=== PATIENT | female | born 1950 | race Caucasian/White ===

== ENCOUNTER 2016-10-31 13:00 | Inpatient (IN) | payer OTHER ==
[~2016-10-31] VITALS: Ht 170.2 cm; Wt 88.4 kg
--- NOTE | ~2016-10-31 | CON ---
PATIENT'S NAME: LILI IVEY [facility] AGE: 66 Y [address] ROOM: [id number] [place], [place] [address] LOCATION: G3N ADMIT DATE: 11/13/2016 Consultation DISCHARGE DATE: 11/16/2016 FAMILY PHYSICIAN: Jerod Phipps MD ATTENDING PHYSICIAN: Kalin Parada DATE OF CONSULTATION: 11/15/2016 TIME: 1:45 p.m. CHIEF COMPLAINT: Tremulousness. PRIOR MEDICAL HISTORY: This is a 66-year-old female who presented two days ago to have a right total knee surgery per Dr. Parada. After the surgery, she had some tremulousness of her left lower extremity. Occasionally these episodes of tremulousness would also involve her right arm and the whole body. At no time, did she lose any consciousness. She was totally aware of the symptoms. They would last anywhere from 2 minutes to 15 minutes. They did not seem to be brought on by anything, although the patient has had some pain control issues after surgery. Her pain is been well controlled, however, they have had to adjust the medication regime. The nurse stated she had this issue with her legs shaking, but was able to walk to the bathroom with a walker and return to the chair and the legs started shaking again. Demerol 25 mg IV has been used to treat this, however, it is unsure how effective this has been. She is also receiving Valium 5 mg p.o. The patient was on tramadol previous to the hospital stay for her pain. Now, she is getting Dilaudid p.o. The tremulousness only happened one time last night, but did happen several times yesterday. At no time, did she lose strength nor have any numbness or tingling with this. She was a little dizzy last night, however, her blood pressure was in the 90s. She has been participating in her joint recovery without incident. We are consulted for evaluation of the tremulousness. ALLERGIES: CODEINE, CORTISONE, MORPHINE, AND PERCOCET TABS. SOCIAL HISTORY: She is . She has never used to alcohol and she does not smoke nor use illicit drugs. FAMILY HISTORY: Her mother had a history of a CVA, diabetes mellitus, and hypertension. Her father had a history of hypertension. She does have one sibling with history PATIENT'S NAME: LILI IVEY [facility] AGE: 66 Y [address] ROOM: [id number] [place], [place] [address] LOCATION: G3 ADMIT DATE: 11/13/2016 Consultation DISCHARGE DATE: 11/16/2016 FAMILY PHYSICIAN: Jerod Phipps MD ATTENDING PHYSICIAN: Kalin Parada of hypertension. An aunt had a history of a malignant neoplasm and an uncle had a history of malignant neoplasm. REVIEW OF SYSTEMS: All systems were reviewed and are negative except as those mentioned in the HPI. PHYSICAL EXAMINATION: VITAL SIGNS: The patient's temperature is 98.5, pulse is 65, respirations 12, and blood pressure 105/58. She is saturating 93% on room air. GENERAL: Lili is alert and oriented, she is pleasant and cooperative with the interview. She is in no distress. HEENT: Head is normocephalic and atraumatic. CARDIO: Regular rate and rhythm without murmur, rub, or gallop. PULMONARY: She is clear to auscultation bilaterally. EXTREMITIES: There is no clubbing, cyanosis, and there is slight edema to the right leg, although it is difficult to tell because it is wrapped in an Shawn wrap. NEUROLOGIC: She is alert and oriented x3. Her language is fluent. She is a good historian. Pupils are equal and reactive to light and accommodation. Cranial nerves 2 through 12 are intact. As far as motor strength, she has normal motor tone. Her strength is a 5/5 throughout uppers and lower extremities. The exception is her right knee. Limits the exam to the right leg. She was witness to walk with a walker with the right knee and she is able to propel herself well. There is no pronator drift. Her reflexes are 2+ throughout. Sensation is intact. Cerebellar function by [id number] testing was intact. Gait is per walker and is appropriate for someone who has just had a right total knee. She did have a CMS pre-surgery and there were no out of limit values with that. She also had a CBC which showed a hemoglobin of 14.3 and hematocrit of 42.5. A urinalysis was also completed prior to surgery without any findings suspicious for infection. SUMMARY: In summary, this patient has developed tremulousness of the left leg sometimes involving the upper body and arms after knee surgery. The patient states she has had this tremulousness before after a back surgery. Demerol does not seem to be exceedingly effective for this. This does not seem to happen when she is asleep as she only had that one time at night; however, she has had it many times during the day. ASSESSMENT AND PLAN: 1. Tremulousness. This certainly could be related to medications and anesthesia and the stress of having a surgery. This seems like a benign PATIENT'S NAME: LILI IVEY [facility] AGE: 66 Y [address] ROOM: [place] [address] LOCATION: [facility] ADMIT DATE: 11/13/2016 Consultation DISCHARGE DATE: 11/16/2016 FAMILY PHYSICIAN: Jerod Phipps MD ATTENDING PHYSICIAN: Kalin Parada tremulousness and I would not treat it with any further medications. This should resolve. The patient was pleased to hear that diagnosis. If you have any further questions, please let us know. Dr. Brown and I both examined the patient. We would like to thank Dr. Parada for the opportunity to participate in this patient's care. HEATHER CUEVAS APRN FOR DARLENE BROWN MD PP/romeo /[id number] d: 11/16/161609 t: 12/05/16 1629, CONSULTATION REPORT
--- NOTE | ~2016-10-31 | OR ---
PATIENT'S NAME: LONI [facility] AGE: 66 Y [address] ROOM: [place] [address] LOCATION: [facility] ADMIT DATE: 11/13/2016 OR/Procedure Report DISCHARGE DATE: FAMILY PHYSICIAN: TRICIA HINTON MD ATTENDING PHYSICIAN: SOBIA POOL SURGEON: Sobia Pool MD MANAGER CLEANING: 1. Boby Lake PA-C. 2. Thony Flroes CST/CHIEF ACCOUNTING OFFICER. DATE OF PROCEDURE: 11/13/2016 PRE-OP DIAGNOSIS: Degenerative joint disease right knee. POST-OP DIAGNOSIS: Degenerative joint disease right knee. OPERATION: Right total knee arthroplasty with computer navigation. ANESTHESIA: Spinal anesthesia plus adductor canal block plus subcutaneous and periarticular local anesthesia (ropivacaine with epinephrine and Toradol). ESTIMATED BLOOD LOSS: Less than 10 mL. DRAIN: None. SPECIMEN: None. COMPLICATIONS: None. IMPLANT SYSTEM: [employer]. 1. Size 4 right posterior stabilized femoral component. 2. Size 3 universal modular tibial baseplate. 3. 13 mm posterior stabilized size 3 X3 tibial polyethylene insert. 4. 32 mm oval X3 patella component. INDICATIONS FOR SURGERY: Lili Ivey is a 66-year-old female, who presents with advanced right knee degenerative joint disease and associated severely compromised activities of daily living. The patient has decided to proceed with knee replacement after having been thoroughly counseled regarding the associated risks, benefits, and limitations. We have specifically reviewed the risks and implications of infection, deep venous thrombosis, pulmonary embolism, mortality, neurovascular complications, blood transfusion (and associated potential for disease transmission or transfusion reaction), stiffness, instability, mechanical deterioration of the components (due to wear and or loosening), and the potential need for revision. We have also emphasized the importance of active involvement and compliance with post- operative physical therapy as a means of optimizing range of motion and PATIENT'S NAME: LONI [facility] AGE: 66 Y [address] ROOM: [place] [address] LOCATION: [facility] ADMIT DATE: 11/13/2016 OR/Procedure Report DISCHARGE DATE: FAMILY PHYSICIAN: TRICIA HINTON MD ATTENDING PHYSICIAN: SOBIA POOL functional recovery. Informed consent has been granted. DESCRIPTION OF PROCEDURE: The patient was positioned supine after administration of anesthesia and prophylactic antibiotics. A well-padded pneumatic tourniquet was placed around the right proximal thigh, and the right lower extremity was prepped and draped with vigilant sterile technique. The patient's name as well as the intended operative side and procedure were confirmed with a verbal time-out involving myself, the circulating nurse, the scrub nurse, and the anesthesiologist. Examination under anesthesia demonstrated no active skin lesions or masses. There was no erythema. There was no abnormal warmth. There was a trace effusion. There were well-healed inferomedial and inferolateral arthroscopy portal scars. Range of motion under anesthesia was from 8 degrees of hyperextension to 140 degrees of flexion. There was no ligamentous insufficiency. The right lower extremity was elevated and exsanguinated with an Esmarch wrap, and the pneumatic tourniquet was inflated to 300mmHg. The knee was approached through a longitudinal midline incision. A medial parapatellar arthrotomy was performed and the patella was everted. Examination of the joint space demonstrated a moderate amount of benign- appearing translucent synovial fluid. There was moderate fibrosis of the infrapatellar fat pad. The anterior cruciate ligament was attenuated but intact. The posterior cruciate ligament was intact. There was no synovitis. There were no loose bodies. The medial and lateral menisci were truncated. There was mild inner perimeter fraying of the remnant to the medial meniscus. There were intermixed grade 3 and grade 4 degenerative changes throughout the majority of the central and medial aspects of the patella. There was a 2 cm x 3 cm diameter region of full-thickness articular cartilage loss involving the central and medial half of the femoral trochlea. There were small osteophytes at the medial and lateral femoral condyles. There was a 1 x 3 cm area of full- thickness articular cartilage loss at the lateral half of the medial femoral condyle. There were moderate grade 3 degenerative changes involving the anterior half of the medial tibial plateau. There was a 1 cm diameter region of high-grade partial thickness articular cartilage loss at the distal aspect of the lateral femoral condyle. There were moderate grade 3 degenerative changes at the medial two-thirds of the lateral tibial plateau. Remnants of the menisci and cruciate ligaments were excised. The [employer] navigation femoral tracker was pinned in place at the distal aspect of the femoral trochlea. Absence of motion between the femur and the tracking device was confirmed manually and visually. Femoral osseous landmarks were obtained in order to calibrate the computer navigation system. Landmarks included the center of rotation of the ipsilateral hip, the center-point of the distal femur, the femoral AP axis, 57 points on the medial femoral condyle PATIENT'S NAME: LILI IVEY [facility] AGE: 66 Y [address] ROOM: [address] [address] LOCATION: [facility] ADMIT DATE: 11/13/2016 OR/Procedure Report DISCHARGE DATE: FAMILY PHYSICIAN: TRICIA HINTON MD ATTENDING PHYSICIAN: SOBIA POOL articular surface, and 57 points on the lateral femoral condyle articular surface. The [employer] computer navigation system was subsequently utilized to position the distal femoral resection block such that the distal femoral resection was performed perfectly perpendicular to the femoral mechanical axis. The distal femoral resection was performed with a [employer] oscillating saw. The [employer] computer navigation tibial tracker was pinned in place at the anterior aspect of the tibial plateau. Absence of motion between the tibia and the tracking device was confirmed manually and visually. Tibial osseous landmarks were obtained in order to calibrate the computer navigation system. Landmarks included the center-point of the tibial plateau, the AP tibial axis, 57 points on the medial tibial plateau articular surface, 57 points on the lateral tibial plateau articular surface, the medial malleolus, and the lateral malleolus. The [employer] computer navigation system was subsequently utilized to position the proximal tibial resection block such that the proximal tibial resection was performed perfectly perpendicular to the tibial mechanical axis. The proximal tibial resection was performed with a [employer] oscillating saw. Perpendicularity of the tibial resection with respect to the tibial shaft axis was reconfirmed by inserting a spacer- block attached to an extramedullary guide betina. External rotation of the anterior and posterior femoral resections was set parallel to the epicondylar axis and carefully adjusted in order to create a rectangular flexion gap. The box resection was performed with a reciprocating saw. Anterior and posterior chamfer resections were performed with the oscillating saw. Posterior condyle osteophytes were excised with an osteotome. All other osteophytes were excised with a rongeur. Resection of all remnants of the menisci was reconfirmed. Flexion and extension gaps were confirmed to be symmetric and well balanced with a spacer-block technique. The patella resection was performed with an oscillating saw such that the composite thickness of the reconstructed patella was equivalent to the thickness of the [place] patella. Patella tracking was optimal, and there was no need for a lateral retinacular release. All trial components were removed and all prepared osseous surfaces were thoroughly irrigated with pulsatile saline lavage and dried prior to cementing all three components in a single stage using [employer] Simplex cement containing pre-mixed tobramycin. All extruded excess cement was removed. The entire joint space was thoroughly inspected and thoroughly irrigated with bacteriostatic pulsatile saline lavage to assure that there was no residual debris of any sort. Final range of motion was from full extension (with no residual passive PATIENT'S NAME: LILI IVEY [facility] AGE: 66 Y [address] ROOM: [place] [address] LOCATION: [facility] ADMIT DATE: 11/13/2016 OR/Procedure Report DISCHARGE DATE: FAMILY PHYSICIAN: TRICIA HINTON MD ATTENDING PHYSICIAN: SOBIA POOL hyperextension) degrees of extension to 135 degrees of flexion. Patella tracking was reconfirmed to be optimal. There was excellent anteroposterior stability at 90 degrees of flexion. There was less than 1 mm of medial lift- off to valgus stress in full extension. There was a less than 1 mL of lateral lift-off to varus stress in full extension. The arthrotomy was closed with multiple simple and [id number] interrupted #1 Vicryl. Subcutaneous tissues were thoroughly re-irrigated with bacteriostatic pulsatile saline lavage. Subcutaneous tissues were re- approximated with simple buried interrupted #0 Vicryl sutures. The skin was closed with simple buried interrupted 2-0 Vicryl sutures followed by surgical berry. The dressing consisted of Xeroform gauze, 4x4 gauze, ABD pads and two 6-inch Shawn Wraps. There were no intra-operative complications. It should be noted that the physician's gallery assistant played an active, integral role throughout this entire operation. By providing expert retraction, they greatly facilitated and expedited safe and effective exposure of the distal femur, proximal tibia and patella for preparation and implantation of the components. They were also actively involved in the patient's positioning, prepping and draping, as well as wound closure. MD SURENDRA YATES/romeo /[id number] d: 11/13/162102 t: 11/14/16 1210, OPERATIVE SUMMARY
[2016-10-31] MEDS ORDERED: MULTI VITAMIN1 EACH PO (13:14)
[2016-10-31] MEDS ORDERED: ECOTRIN325 MG PO (13:14)
[2016-10-31] MEDS ORDERED: PROBIOTIC1 EAC1 PO (13:14)
[2016-10-31] MEDS ORDERED: LIPITOR20 MG PO (13:15)
[2016-10-31] MEDS ORDERED: HYDROCHLOROTHIA25 MG PO (13:15)
[2016-10-31] MEDS ORDERED: ZESTRIL40 MG PO (13:15)
[2016-10-31] MEDS ORDERED: COREG6.25 MG PO (13:16)
[2016-10-31] MEDS ORDERED: ULTRAM50 MG PO (13:17)
[2016-10-31] MEDS ORDERED: NORCO 7.5-3251 EACH PO (13:17)
--- NOTE | 2016-11-13 17:05 | NUR ---
Significant Event: Pt up from PACU at 1600. VSS, CSM WNL. Moderate plantar/dorsi flexion. IV intact. Nausea - Zofran given better now. Dilaudid 2 mg last at 1630. No void since OR. Ozzy hose on, foot pumps in use. Uses IS 10x/hr Follow up:
--- NOTE | 2016-11-14 05:46 | NUR ---
At 0400 went into patients room to reassess pain medication. Patient was mildly shaking. Patients pain increased from a 3 to a 7/10. Left the room and got pain medication. When returned to the room patient began to shake even more. The left leg shook and the upper body began to slightly shake. Gave Dilaudid IV, Vailum 5 mg PO and Tylenol at 0402. Patient denied being cold. Patient shook even more harder. Called charge nurse and she came in. Charge nurse stayed with patient while I called the MD. The charge nurse called warehouse checker and saw the patient. district manager primary care sales called the MD to discuss options. MD order Demerol IV and came to see the patient. Demerol was given. After a short time her shaking improved to stopping. Patient was stiff and sore from the shaking. MD was in the room and ordered Valium PO and was aware it was just given earlier. Patient is now sleeping calmly.
--- NOTE | 2016-11-14 06:10 | NUR ---
Significant Event: Dressing is clean, dry and intact. CSM WNL. 1 assist with transfers. Voids without difficulty. At 0400 patient became very shaky. Demerol was given at 0442. Valium at 0402 and 0455 extra dose given per MD order. Patient now resting. On 1 L of oxygen nasal cannula. Slight dizziness when getting up. Follow up:
--- NOTE | 2016-11-14 09:40 | NUR ---
SPOKE TO PATIENT REGARDING CM AND OUR ROLE. PATIENT LIVES IN OWN HOME WITH SPOUSE, SHE HAS ALL HER DME. SHE ANTICIPATES THAT SHE WILL DISCHARGE HOME TOMORROW WITH HELP FROM SPOUSE. PATIENT DOES NOT ANTICPATE ANY DISCHARGE NEEDS AT THIS TIME.
--- NOTE | 2016-11-14 18:37 | NUR ---
Significant Event: Ambulates with one assist, walker and gaitbelt. Increased pain after therapy class, see emar for pain medications given, ETCO2 applied. Dr Parada notified of pain control issues. Nausea, Zofran and peppermint oil given. Voids without difficulty. CSM WNL. Room air. Possible dismissal to home tomorrow afternoon. Follow up:
--- NOTE | 2016-11-15 02:43 | NUR ---
Significant Event: Dressing is clean, dry and intact. CSM WNL. Voids without difficulty. Dizzy when gets up to the bedside commode. Skelactin at 1846. Dilaudid 4 mg at 0131. Valium at 2209. Follow up:
--- NOTE | 2016-11-15 16:27 | NUR ---
Pt alert and oriented. She has had ice to knee and legs elevated. Shower this AM and compression dressing off and has mepilex to knee. Pt has been up with one asst and does well. She uses IS at 2250. She has had bilat leg tremors/shaking, uncontrollable a few times today. Was worse at 1230. Had valium 5 mg and Demerol 25 mg IV and it subsided about 7 min after demerol. None noted since. Pt ambulated to the bathroom after the tremor/shaking started and it subsided during ambulation and no problems walking. Had it of left leg this morning but not as severe. Pt had neurologist consult this afternoon. No change in medicines. She has had dilaudid 4 mg po x2, last at 1415, Demerol at 1250, valium at 1230, tylenol routine, and routine skelaxin. Was on ETCO2 earlier this morning and readings were good. Pt was dizzy when up to shower this morning. Plan to go home tomorrow.
--- NOTE | 2016-11-15 17:02 | NUR ---
Legs shakey/tremors at 1655. Demerol 25 mg IV given
--- NOTE | 2016-11-16 03:16 | NUR ---
Significant Event: A/O X 3. IV SALINE LOCK INTACT. RIGHT KNEE DRSGS MEPILEX DRY-INTACT. EZ-WRAP TO RIGHT KNEE. SAT UP IN RECLINER CHAIR EARLIER EVENING. AMBULATED TO BR VOIDS WITHOUT DIFFICULTY. HAS BILATERAL LEGS SHAKINESS. HAD DEMEROL 25MG IV FOR LEGS SHAKEY'S. HAD VALIUM 5MG PO AT 0048. HAD DILAUDID 4MG TAB 1926, 2329 FOR PAIN, RATE AT 7, LATER 5-06/09. SKELAXIN 800MG AT 2145. BP 91/ 52. UP WITH ONE ASSIST, WALKER,GAITBELT IN ROOM/BR. POSSIBLE HOME TODAY. Follow up:
[2016-11-16] MEDS ORDERED: COLACE100 MG PO (14:41)
[2016-11-16] MEDS ORDERED: PEPCID20 MG PO (14:46)
[2016-11-16] MEDS ORDERED: SKELAXIN800 MG PO (14:47)
[2016-11-16] MEDS ORDERED: MIRALAX17 GM PO (14:48)
[2016-11-16] MEDS ORDERED: LYRICA 75MG CAP75 MG PO (14:49)
[2016-11-16] MEDS ORDERED: VALIUM5 MG PO (14:51)
[2016-11-16] MEDS ORDERED: DILAUDID 2MG(HYD2 MG PO (14:52)
[2016-11-16] MEDS ORDERED: CELEBREX200 MG PO (15:01)
== END 2016-11-16 16:14 | disposition disaster alternative care site (69) | DRG 470 ==
LOC: G3N 11-13 10:35
PROVIDERS: ADMIT Orthopaedic Surgery
PROC: 0SRC0J9 Replacement of Right Knee Joint with Synthetic Substitute, Cemented, Open Approach (ICD-10-PCS; principal; 2016-11-13)
PROC: XR2G021 Monitoring of Right Knee Joint using Intraoperative Knee Replacement Sensor, Open Approach, New Technology Group 1 (ICD-10-PCS; principal; 2016-11-13)
DX: M17.11 Unilateral primary osteoarthritis, right knee (principal); I95.89 Other hypotension; E78.5 Hyperlipidemia, unspecified; G47.33 Obstructive sleep apnea (adult) (pediatric); I10 Essential (primary) hypertension; R25.1 Tremor, unspecified
CPT/HCPCS: C1713; C1776; J0690; J1170; J1885; J2001; J2175; J2250; J2405; J2795; J3010; J7030; J7120

== ENCOUNTER → 2016-11-02 | Outpatient (CLI) | payer OTHER ==
[~2016-11-02] MED LIST: CELEBREX200 MG PO; COLACE100 MG PO; COREG6.25 MG PO; DILAUDID 2MG(HYD2 MG PO; ECOTRIN325 MG PO; HYDROCHLOROTHIA25 MG PO; LIPITOR20 MG PO; LYRICA 75MG CAP75 MG PO; MIRALAX17 GM PO; MULTI VITAMIN1 EACH PO; NORCO 7.5-3251 EACH PO; PEPCID20 MG PO; PROBIOTIC1 EAC1 PO; SKELAXIN800 MG PO; ULTRAM50 MG PO; VALIUM5 MG PO; ZESTRIL40 MG PO
== END | disposition disaster alternative care site (69) ==
LOC: GNJRC 10:25
DX: Z01.812 Encounter for preprocedural laboratory examination (principal); M17.11 Unilateral primary osteoarthritis, right knee

== ENCOUNTER → 2016-11-21 | Outpatient (CLI) | payer OTHER ==
--- NOTE | ~2016-11-21 | ENPV ---
Vascular Lower Extremities DVT Study Procedure Demographics Patient Name LILI IVEY Date of Study 11/21/2016 Patient Number [id number] Gender Female Date of 1950 Age 66 Visit Number [id number] Height Accession Number [id number] Weight Room Number BSA BMI Referring Tal Solis MD Interpreting Timbo Reyes MD Physician Physician Physician Ordering Physician Tal Solis MD Cyber Systems Engineer Production Cloth Cutter Ele Moya RVT Laura Davenport BS, RT Conclusions Summary No evidence of deep vein thrombosis or superficial thrombophlebitis in the right lower extremity . Procedure Type of Study: Veins:Lower Extremities DVT Study, Lower Extremity Right. Indications for Study:Swelling of Limb and Pain. Patient Status:Routine. Study Location:Vascular Lab. Technical Quality:Adequate visualization. Velocities are measured in cm/s ; Diameters are measured in cm Right Lower Extremities DVT Study Measurements Right 2D and Doppler Measurements + + + + +------+------+ + !Location !Visualized!Compressibility!Thrombosis!Signal!Reflux!Reflux ! ! ! ! ! ! ! !(sec) ! + + + + +------+------+ + !GSV Thigh !Yes !Yes !None !Phasic!No ! ! + + + + +------+------+ + !Common !Yes !Yes !None !Phasic!No ! ! !Femoral ! ! ! ! ! ! ! + + + + +------+------+ + !Prox !Yes !Yes !None !Phasic!No ! ! !Femoral ! ! ! ! ! ! ! + + + + +------+------+ + !Mid Femoral!Yes !Yes !None !Phasic!No ! ! + + + + +------+------+ + !Dist !Yes !Yes !None !Phasic!No ! ! !Femoral ! ! ! ! ! ! ! + + + + +------+------+ + !Popliteal !Yes !Yes !None !Phasic!No ! ! + + + + +------+------+ + !Gastroc !Yes !Yes !None !Phasic!No ! ! + + + + +------+------+ + !PTV !Yes !Yes !None !Phasic!No ! ! + + + + +------+------+ + !Peroneal !Yes !Yes !None !Phasic!No ! ! + + + + +------+------+ + Left Lower Extremities DVT Study Measurements Left 2D and Doppler Measurements + + + + +------+------+ + !Location !Visualized!Compressibility!Thrombosis!Signal!Reflux!Reflux ! ! ! ! ! ! ! !(sec) ! + + + + +------+------+ + !Common !Yes !Yes !None !Phasic! ! ! !Femoral ! ! ! ! ! ! ! + + + + +------+------+ + Signature dtt: GUILLERMO ADLER dtrustam: 11/21/16 1359 Physician Self Edit
== END | disposition disaster alternative care site (69) ==
LOC: GCAR 14:00
DX: M79.661 Pain in right lower leg (principal)